=== PATIENT | female | born 1955 | race Caucasian/White ===

== ENCOUNTER 2016-08-10 06:52 | Day surgery (SDC) | payer OTHER ==
[~2016-08-10] VITALS: Ht 170.2 cm; Wt 119.2 kg
[2016-08-10] VITALS (10 sets, daily range): BP systolic 87–128; BP diastolic 55–78; PULSE 60–70; RESP 12–20; Ht 170.2 cm; Wt 119.2 kg
[~2016-08-10 06:52] MED LIST: OMEP20CA16 PO
[2016-08-10] MEDS ORDERED: PROPOFOL 20 ML ONE (09:44)
[2016-08-10] MEDS ORDERED: MIDAZOLAM 1 MG/ML 2 ML INJ ONE (09:45)
[2016-08-10] MEDS ORDERED: FENTAnyl 50 MCG/ML VIAL ONE (09:45)
[2016-08-10] MEDS ORDERED: LIDOCAINE 1% (MDV) 20 ML INJ ONE (09:48)
[2016-08-10] MEDS ORDERED: LIDOCAINE 1% (MDV) 20 ML INJ INJ ONE (09:55)
[2016-08-10] MEDS ORDERED: KETOROLAC 30 MG INJ ONE (10:19)
--- NOTE | 2016-08-10 10:50 | OPR ---
Date/Time of Note Date/Time of Note DATE: 08/10/16 TIME: 10:48 Operative Report Preoperative Diagnosis Right Thigh mass Postoperative Diagnosis same Operation Performed Right thigh mass removal Surgeon: HERBIE LEWIS MD Anesthesia: MAC Estimated Blood Loss: none Specimens Right Thigh mass Complications: None Pt Condition Post Procedure: stable Disposition: PACU HERBIE LEWIS MD August 10, 2016 10:50
[2016-08-10] MEDS ORDERED: HYDROmorphONE (0.2 MG/ML) 10ML SYG IV PRN ×2 (11:30)
--- NOTE | 2016-08-10 12:18 | OPR ---
DATE OF OPERATION: PREOPERATIVE DIAGNOSIS: Right thigh mass. POSTOPERATIVE DIAGNOSIS: Right thigh mass. PROCEDURE: Removal of right thigh mass. SURGEON: Herbie Sky MD ANESTHESIA: Local plus IV sedation. CONSENT: Risks, benefits, complications, alternative therapies explained to the patient and the bud burns, consent obtained. OPERATIVE TECHNIQUE: The patient was placed in supine position, prepped and draped in usual sterile fashion, 1% lidocaine was used throughout the operation for local anesthesia. A time-out was rockwell d, antibiotics were given and I started. The mass was about 1 x 1 cm in the lateral aspect of the right thigh. A incision was made abo ut 2 x 3 cm for adequate margin and incision was taken down to the subcutaneous tissue which was the n opened using electrocautery. I advanced down about 0.75 cm deep, viewed the entire mass and spoke with the pathologist who thought this was probably benign and that we do not need to do frozen. Th e specimen was sent for permanent pathology. Hemostasis was achieved using electrocautery. The wou nd was irrigated using antibiotic solution and closed in 2 layers of 2-0 Vicryl suture for the deep, 2-0 and 3-0 Vicryl suture for running subcuticular skin closure with Steri-Strips. Patient tolerat ed the procedure well. Dictated By: HERBIE SKY MD FM/NTS Conf#: [id number] DID#: [id number]
== END 2016-08-10 11:33 | disposition home or self-care (01) ==
LOC: SDS 06:52
PROVIDERS: ATTEND Thoracic Surgery (Cardiothoracic Vascular Surgery)
DX: R22.41 Localized swelling, mass and lump, right lower limb (principal); D18.01 Hemangioma of skin and subcutaneous tissue; E66.9 Obesity, unspecified; Z68.41 Body mass index [BMI] 40.0-44.9, adult
CPT/HCPCS: 11406; 88307; J1885; J2250; J3010; Z7512; Z7610

== ENCOUNTER 2017-01-01 09:28 | Day surgery (SDC) | payer OTHER ==
[~2017-01-01] VITALS: Ht 170.2 cm; Wt 114.7 kg
[2017-01-01] VITALS (14 sets, daily range): BP systolic 93–125; BP diastolic 48–69; PULSE 48–60; RESP 16–18; Ht 170.2 cm; Wt 114.7 kg
[~2017-01-01 09:28] MED LIST changes: +CEFAZOLIN 2 GM/50 ML (PMX) 50 ML IVPB SCH; -OMEP20CA16 PO; +SOD CHLORIDE 0.9% 1,000 ML IV SCH
--- NOTE | 2017-01-01 10:29 | RADRPT ---
PROCEDURE: XR Chest. CLINICAL INDICATION: preop TECHNIQUE: Single frontal view of the chest was obtained. COMPARISON: None FINDINGS: The heart is within normal limits. The thoracic aorta is calcified. The lungs are clear. There is no pleural effusion or pneumothorax. RPTAT: AA IMPRESSION: No acute disease. Calcified aorta consistent with atherosclerotic disease. .Hayes Barba MD, MD Date Time Electronically viewed and signed by .Hayes Barba MD, on 01/01/2017 10:29 .S/
[2017-01-01] MEDS ORDERED: NEOSTIGMINE 3 MG/3 ML SYRINGE ONE ×2 (12:30→12:31)
[2017-01-01] MEDS ORDERED: GLYCOPYRROLATE 1 MG INJ ONE (12:30)
[2017-01-01] MEDS ORDERED: PROPOFOL 20 ML ONE (12:30)
[2017-01-01] MEDS ORDERED: LIDOCAINE 2% (SDV) 5 ML INJ ONE (12:30)
[2017-01-01] MEDS ORDERED: MEPERIDINE 100 MG INJ ONE ×2 (12:30→13:26)
[2017-01-01] MEDS ORDERED: SUCCINYLCHOLINE CHLORIDE 100 MG/5 ML SYG IV ONE (12:30)
[2017-01-01] MEDS ORDERED: ROCURONIUM 50 MG INJ ONE (12:30)
[2017-01-01] MEDS ORDERED: BUPIVACAINE 0.25% (MPF) 10 ML 10 ML VIAL ONE (13:16)
[2017-01-01] MEDS ORDERED: ATROPINE 1 MG/10 ML SYRINGE ONE (14:06)
[2017-01-01] MEDS ORDERED: ONDANSETRON 4 MG INJ ONE (14:07)
[2017-01-01] MEDS ORDERED: METOCLOPRAMIDE 10 MG INJ ONE (14:07)
--- NOTE | 2017-01-01 14:23 | OPR ---
Date/Time of Note Date/Time of Note DATE: 01/01/17 TIME: 14:19 Operative Report Procedure Date: Jan 01, 2017 Preoperative Diagnosis symptomatic gallstones Postoperative Diagnosis same Operation/Procedure Performed 1. laparoscopic cholecystectomy 2. therapeutic injection subcutaneous local anesthesia Surgeon see signature line Plant Etiologist none Anesthesia Type: general Estimated Blood Loss: 0 - 10 ml's Transfusion none Specimen gallbladder Grafts/Implants none Complications none Pt Condition Post Procedure: stable Indications This is a 61-year-old female with substernal gallstones. She requests surgical excision. Risks alternatives benefits and percent were discussed with the patient. Patient expresses understanding consents to the operation. Procedure Description Patient taken to the OR and prepped and draped in sterile fashion. Surgical timeout was performed. IV antibiotics were given. Infraumbilical transverse incision is made with a 15 blade. Dissection cautery was carried onto the fascia. The fascia was grasped with Ruby's and divided with curved Arambula scissors. 0 Vicryl U stitch was placed into the fascia. Blueness on trocar is introduced. Pneumoperitoneum is established. Midepigastric 12 mm optical trocar was placed under direct visualization. Right upper quadrant upper flank 5 mm optical trocar was placed under direct visualization. Upon initial inspection there is some adhesions to the gallbladder. The gallbladder was retracted in the lateral and our direction. This allowed mobilization of the gallbladder to allow visualization of the cystic duct. Lateral dissection with the cautery was initiated to allow further mobilization and careful dissection of the cystic duct. The critical view is established. The cystic duct due to his thickened tissue was clipped with 3 clips proximal and divided distally with 35 mm echelon vascular stapler. Cystic artery was clipped with 3 clips proximal and clip distal. The gallbladder was taken off the gallbladder bed. There is good hemostasis. The gallbladder was retrieved using Endo Catch bag. Ports removed under direct visualization. 0 Vicryl U stitch was tied down. Skin was closed using skin donna. Therapeutic subcutaneous local anesthesia was injected throughout all incision sites. Dressings were applied. Byron BAKER Jan 01, 2017 14:23
[2017-01-01] MEDS ORDERED: HYDROCODONE/APAP (5/325) TAB PO ONE (14:30)
--- NOTE | 2017-01-01 16:08 | RADRPT ---
Vent Rate: 57 bpm RR Interval: 0 msec CO Interval: 206 msec QRS Duration: 84 msec QT Interval: 414 msec QTC Interval: 402 msec P-R-T [place]: 51 - 52 - 49 degrees Sinus bradycardia Otherwise normal ECG Electronically Signed By: Shay Beavers [id number]
[2017-01-01] MEDS ORDERED: BUPIVACAINE 0.25% (MPF) 30 ML INJ ONE (16:12)
== END 2017-01-01 16:23 | disposition home or self-care (01) ==
LOC: SDS 09:28
PROVIDERS: ATTEND Surgery
DX: K80.10 Calculus of gallbladder with chronic cholecystitis without obstruction (principal); E66.01 Morbid (severe) obesity due to excess calories
CPT/HCPCS: 47562; 71010; 88304; 93005; J0461; J2175; J2405; J2710; J2765; Z7512; Z7610